=== PATIENT | male | born 1950 | race Hispanic/Latino ===

== ENCOUNTER 2018-04-09 15:15 | Inpatient (IN) | payer BC ==
[2018-04-09 15:24] VITALS: BMI 32.1
--- NOTE | 2018-04-09 15:41 | C.PDOC ---
History Of Present Illness 68 year old male with PMHx of HTN presents to the ED complaining of high blood pressure. Patient states he is currently on HCTZ and Cozaar and was recently prescribed Metropolol QD by PMD, but blood pressure remains unchanged. He has taken the Metoprolol for 3 days. He reports blood pressure was high when he got it checked at the pharmacy today which prompted him to come to the ER. He denies any headache, chest pain, shortness of breath, dizziness or blurred vision. Patient is currently asymptomatic but complains of indigestion for the past few days. Time Seen by Provider: 04/09/18 15:29 Chief Complaint (Nursing): High Blood Pressure History Per: Patient History/Exam Limitations: no limitations Onset/Duration Of Symptoms: Hrs Current Symptoms Are (Timing): Still Present Associated Symptoms: denies: Chest Pain, Blurred Vision, Headache Quality Of Symptoms: Asymptomatic Past Medical History Reviewed: Historical Data, Nursing Documentation, Vital Signs Vital Signs: Last Vital Signs Temp 98.8 F 04/09/18 15:24 Pulse 62 04/09/18 19:54 Resp 16 04/09/18 19:54 BP 185/110 H 04/09/18 19:54 Pulse Ox 97 04/09/18 19:54 - Medical History PMH: HTN Surgical History: Endoscopy Family History: States: No Known Family Hx - Social History Hx Alcohol Use: Yes Hx Substance Use: No - Immunization History Hx Tetanus Toxoid Vaccination: Yes Hx Influenza Vaccination: Yes Hx Pneumococcal Vaccination: Yes Review Of Systems Eyes: Negative for: Vision Change Cardiovascular: Negative for: Chest Pain Respiratory: Negative for: Shortness of Breath Neurological: Negative for: Headache, Dizziness Physical Exam - Physical Exam Appears: Non-toxic, No Acute Distress Skin: Normal Color, Warm, Dry Head: Atraumatic Eye(s): bilateral: Normal Inspection Nose: Normal Oral Mucosa: Moist Neck: Supple Chest: Symmetrical Cardiovascular: Rhythm Regular Respiratory: Normal Breath Sounds, No Rales, No Rhonchi, No Wheezing Extremity: Normal ROM Neurological/Psych: Oriented x3, Normal Speech Gait: Steady ED Course And Treatment - Laboratory Results Result Diagrams: 04/09/18 15:44 04/09/18 15:44 Lab Interpretation: No Acute Changes ECG: Interpreted By Me ECG Rhythm: Sinus Rhythm (with Q waves III, AVF) ECG Interpretation: No Acute Changes O2 Sat by Pulse Oximetry: 96 (RA) Pulse Ox Interpretation: Normal - CT Scan/US Head Other Rad Studies (CT/US): Read By Radiologist, Radiology Report Reviewed CT/US Interpretation: Accession No. : [id number]. Patient Name / ID : ALVERNE ZABALA / [id number]. Exam Date : 04/09/2018 16:42:06 ( Approved ). Study Comment : Sex / Age : M / [id number]. Creator : Willem Reyna MD. Dictator : Willem Reyna MD. Multimedia Assistant : Biophysics Teacher : Willem Reyna MD. Approver2 : Report Date : 04/09/2018 17:29:36. My Comment : . Date of service: 04/09/2018. PROCEDURE: CT HEAD WITHOUT CONTRAST. HISTORY : R/O Bleed. COMPARISON: None available. TECHNIQUE: Axial computed tomography images were obtained through the head/brain without intravenous contrast. Radiation dose: Total exam DLP = 876.4 mGy-cm. This CT exam was performed using one or more of the following dose reduction techniques: Automated exposure control, adjustment of the mA and/or kV according to patient size, and/or use of iterative reconstruction technique. FINDINGS: HEMORRHAGE: No intracranial hemorrhage. BRAIN: Good corticomedullary differentiation is seen. Proportional, diffuse expansion of the ventriculosulcal and cisternal spaces is appreciated with white matter lucency compatible with diffuse cerebral atrophy and chronic microangiopathy. No suspicious extra-axial fluid collection is identified and the midline brain anatomy appears grossly nonfocal as imaged. There is no mass effect throughout. VENTRICLES: Unremarkable. No hydrocephalus. CALVARIUM: Unremarkable. PARANASAL SINUSES: Unremarkable as visualized. No significant inflammatory changes. MASTOID AIR CELLS: Unremarkable as visualized. No inflammatory changes. OTHER FINDINGS: None. IMPRESSION: Limited age-appropriate age related neuro degenerative findings are identified as discussed above with no acute intracranial findings by standard CT criteria. Follow-up CT or MRI can be utilized as clinically warranted. Progress Note: Patient treated with Lopressor 50 mg po. Reevaluation Time: 19:16 Reassessment Condition: Unchanged (Patient continues to have elevated BP despite Lopressor. He is now c/o "indigestion". Repeat EKG shows sinus roland with ST segment slurring inferior and V5-6. Nitro drip and Protonix ordered.) - Physician Consult Information Time Consulting Physician Contacted: 19:18 Physician Contacted: Jim Andino Outcome Of Conversation: Patient to be admitted to his service. Medical Decision Making Medical Decision Making: Plan - CT head - EKG - Labs - UA Disposition - Disposition Disposition: HOSPITALIZED Disposition Time: 20:00 Condition: STABLE - POA Present On Arrival: None - Clinical Impression Clinical Impression: Chest pain, Uncontrolled hypertension - Scribe Statement The provider has reviewed the documentation as recorded by the Scribe Dee Dee Lopez All medical record entries made by the Scribe were at my direction and personally dictated by me. I have reviewed the chart and agree that the record accurately reflects my personal performance of the history, physical exam, medical decision making, and the department course for this patient. I have also personally directed, reviewed, and agree with the discharge instructions and disposition.
[2018-04-09 15:49] LABS: BASO % 0.5 % (0.0-2.0); EOS # 0.2 K/uL (0.0-0.7); EOS % 2.5 % (0.0-4.0); HEMOGLOBIN 14.3 g/dL (12.0-18.0); LYMPH # 1.8 K/uL (1.0-4.3); LYMPH % 23.6 % (20.0-40.0); MEAN CELL VOLUME 82.1 fL (80.0-94.0); MEAN CORPUSCULAR HEMOGLOBIN 28.6 pg (27.0-31.0); MEAN CORPUSCULAR HGB CONC 34.8 g/dL (33.0-37.0); MEAN PLATELET VOLUME 8.3 fL (7.2-11.7); MONO # 0.6 K/uL (0.0-0.8); MONO % 7.7 % (0.0-10.0); NEUT # 4.9 K/uL (1.8-7.0); NEUT % 65.7 % (50.0-75.0); NRBC % 0.3 % (0.0-2.0); RBC 4.98 Mil/uL (4.40-5.90); RED CELL DISTRIBUTION WIDTH 13.8 % (11.5-14.5); WHITE BLOOD COUNT 7.5 K/uL (4.8-10.8)
[2018-04-09 16:03] LABS: ALB/GLOB RATIO 1.7 (1.0-2.1); ALBUMIN 4.4 g/dL (3.5-5.0); ALT/SGPT 43 U/L (21-72); AST/SGOT 25 U/L (17-59); BLOOD UREA NITROGEN 16 mg/dL (9-20); CALCIUM 9.3 mg/dl (8.6-10.4); GFR AFRICAN-AMERICAN > 60; GFR NON-AFRICAN AMERICAN > 60
[2018-04-09 16:20] LABS: SQUAMOUS EPITHIAL < 1 /hpf (0-5); URINE BILIRUBIN NEGATIVE (NEGATIVE); URINE BLOOD NEGATIVE (NEGATIVE); URINE CLARITY Clear (Clear); URINE COLOR Yellow (YELLOW); URINE GLUCOSE (UA) NORMAL (Normal); URINE LEUKOCYTE ESTERASE NEG Leu/uL (Negative); URINE PROTEIN NEGATIVE (NEGATIVE); URINE UROBILINOGEN NORMAL mg/dL (0.2-1.0)
--- NOTE | 2018-04-09 17:31 | CT ---
Date of service: 04/09/2018 PROCEDURE: CT HEAD WITHOUT CONTRAST. HISTORY: R/O Bleed COMPARISON: None available. TECHNIQUE: Axial computed tomography images were obtained through the head/brain without intravenous contrast. Radiation dose: Total exam DLP = 876.4 mGy-cm. This CT exam was performed using one or more of the following dose reduction techniques: Automated exposure control, adjustment of the mA and/or kV according to patient size, and/or use of iterative reconstruction technique. FINDINGS: HEMORRHAGE: No intracranial hemorrhage. BRAIN: Good corticomedullary differentiation is seen. Proportional, diffuse expansion of the ventriculosulcal and cisternal spaces is appreciated with white matter lucency compatible with diffuse cerebral atrophy and chronic microangiopathy. No suspicious extra-axial fluid collection is identified and the midline brain anatomy appears grossly nonfocal as imaged. There is no mass effect throughout. VENTRICLES: Unremarkable. No hydrocephalus. CALVARIUM: Unremarkable. PARANASAL SINUSES: Unremarkable as visualized. No significant inflammatory changes. MASTOID AIR CELLS: Unremarkable as visualized. No inflammatory changes. OTHER FINDINGS: None. IMPRESSION: Limited age-appropriate age related neuro degenerative findings are identified as discussed above with no acute intracranial findings by standard CT criteria. Follow-up CT or MRI can be utilized as clinically warranted.
[2018-04-09] MEDS ORDERED: Nitroglycerin 50mg in D5W 50 MG/250 ML BOTTLE IV ONE ×2 (19:15→19:40)
[2018-04-09 22:09] LABS: BARBITURATES, UR NEGATIVE (NEGATIVE); BENZODIAZEPINES, UR NEGATIVE (NEGATIVE); OPIATES, UR NEGATIVE (NEGATIVE); PHENCYCLIDINE, UR NEGATIVE (NEGATIVE)
--- NOTE | 2018-04-09 22:27 | CP.PCM.CON ---
History of Present Illness - History of Present Illness History of Present Illness: 68 y/o male with pmx of HTN(uncontrolled) presents to [facility] with high blood presure measured at a pharmacy. Patient denies any chest pain, denies any dizziness, ayush any SOBm deneis any exerciase tolerance. Patient admits to a sedentary life style. Patient is a of an employee of [employer]. Patient was given lopressor and then started on nitro ggt at 5 mcg/min. Pmx: HTn P social hx: denies illicit drug use, denies any h/o smoking, work involves computers and travelling ICU consulted as patient was on 5 mcg of nitro ggt Review of Systems - Review of Systems Review of Systems: as per HPI Past Patient History - Past Social History Smoking Status: Never Smoked - CARDIAC Hx Hypertension: Yes - PSYCHIATRIC Hx Substance Use: No - SURGICAL HISTORY Hx Surgeries: Yes - ANESTHESIA Hx Anesthesia: Yes Hx Anesthesia Reactions: No Meds Allergies/Adverse Reactions: Allergies Allergy/AdvReac Type Severity Reaction Status Date / Time No Known Allergies Allergy Verified 04/09/18 15:21 - Medications Medications: Current Medications Nitroglycerin/Dextrose (Nitroglycerin 50 Mg/250 Ml D5w) 50 mg in 250 mls @ 1.5 mls/hr IV .Q24H ONE PRN Reason: 5 MCG/MIN Stop: 04/10/18 19:14 Last Admin: 04/09/18 19:45 Dose: 1.5 mls/hr Physical Exam - Head Exam Head Exam: ATRAUMATIC, NORMAL INSPECTION, NORMOCEPHALIC - Eye Exam Eye Exam: EOMI Pupil Exam: NORMAL ACCOMODATION - ENT Exam ENT Exam: Normal External Ear Exam - Respiratory Exam Respiratory Exam: Clear to Auscultation Bilateral, NORMAL BREATHING PATTERN - Cardiovascular Exam Cardiovascular Exam: Bradycardia, +S1, +S2 - GI/Abdominal Exam GI & Abdominal Exam: Normal Bowel Sounds, Soft. absent: Distended, Guarding, Rebound, Rigid - Extremities Exam Extremities exam: Positive for: normal inspection Results - Vital Signs Recent Vital Signs: Last Vital Signs Temp 98.8 F 04/09/18 15:24 Pulse 55 L 04/09/18 22:12 Resp 16 04/09/18 22:12 BP 160/104 H 04/09/18 22:12 Pulse Ox 98 04/09/18 22:12 - Labs Result Diagrams: 04/09/18 15:44 04/09/18 15:44 Labs: Laboratory Results - last 24 hr 04/09/18 04/09/18 04/09/18 15:44 15:44 16:14 WBC 7.5 RBC 4.98 Hgb 14.3 Hct 40.9 MCV 82.1 MCH 28.6 MCHC 34.8 RDW 13.8 Plt Count 207 MPV 8.3 Neut % (Auto) 65.7 Lymph % (Auto) 23.6 [place] % (Auto) 7.7 Eos % (Auto) 2.5 Baso % (Auto) 0.5 Neut # (Auto) 4.9 Lymph # (Auto) 1.8 [place] # (Auto) 0.6 Eos # (Auto) 0.2 Baso # (Auto) 0.0 Sodium 140 Potassium 3.6 Chloride 103 Carbon Dioxide 25 Anion Gap 15 BUN 16 Creatinine 1.1 Est GFR ( Amer) > 60 Est GFR (Non-Af Amer) > 60 Random Glucose 132 H Calcium 9.3 Total Bilirubin 0.7 AST 25 ALT 43 Alkaline Phosphatase 87 Troponin I < 0.0120 Total Protein 6.9 Albumin 4.4 Globulin 2.5 Albumin/Globulin Ratio 1.7 Urine Color Yellow Urine Clarity Clear Urine pH 6.0 Ur Specific [place] 1.013 Urine Protein Negative Urine Glucose (UA) Normal Urine Ketones Negative Urine Blood Negative Urine Nitrate Negative Urine Bilirubin Negative Urine Urobilinogen Normal Ur Leukocyte Esterase Neg Urine WBC (Auto) < 1 Urine RBC (Auto) < 1 Ur Squamous Epith Cells < 1 Urine Opiates Screen Urine Methadone Screen Ur Barbiturates Screen Ur Phencyclidine Scrn Ur Amphetamines Screen U Benzodiazepines Scrn U Oth Cocaine Metabols U Cannabinoids Screen 04/09/18 21:46 WBC RBC Hgb Hct MCV MCH MCHC RDW Plt Count MPV Neut % (Auto) Lymph % (Auto) [place] % (Auto) Eos % (Auto) Baso % (Auto) Neut # (Auto) Lymph # (Auto) [place] # (Auto) Eos # (Auto) Baso # (Auto) Sodium Potassium Chloride Carbon Dioxide Anion Gap BUN Creatinine Est GFR ( Amer) Est GFR (Non-Af Amer) Random Glucose Calcium Total Bilirubin AST ALT Alkaline Phosphatase Troponin I Total Protein Albumin Globulin Albumin/Globulin Ratio Urine Color Urine Clarity Urine pH Ur Specific [place] Urine Protein Urine Glucose (UA) Urine Ketones Urine Blood Urine Nitrate Urine Bilirubin Urine Urobilinogen Ur Leukocyte Esterase Urine WBC (Auto) Urine RBC (Auto) Ur Squamous Epith Cells Urine Opiates Screen Negative Urine Methadone Screen Negative Ur Barbiturates Screen Negative Ur Phencyclidine Scrn Negative Ur Amphetamines Screen Negative U Benzodiazepines Scrn Negative U Oth Cocaine Metabols Negative U Cannabinoids Screen Negative Assessment & Plan - Assessment and Plan (Free Text) Assessment: HTN: uncontrolled: start with oral lopressor 25 mg q12 hrs and hydralazine 25 mg q8hrs, cehck echo, esr/HS-crp, cholesterol panel -r/o ACS: cehck trop q8hrs x3, (pre-test probability low), ekg changes c/w cardiac mural pressure gradient -HTN: patient will benefit from a combination of lopressor, acei and hydralazine -nutrition consult for heart healthy and no salt diet -continue dvt/pud ppx -cardiology eval -age appropriate screening -Patient is hemodyanmically stable and does not require IV nitroglycerin with current oral antihypertensive d/w ER physician -Risks benefits and alternatives explained to patient. - Date & Time Date: 04/09/18 Time: 22:30
[2018-04-10 06:14] LABS: BASO % 0.3 % (0.0-2.0); EOS # 0.2 K/uL (0.0-0.7); EOS % 2.6 % (0.0-4.0); HEMOGLOBIN 14.8 g/dL (12.0-18.0); LYMPH # 1.9 K/uL (1.0-4.3); LYMPH % 25.1 % (20.0-40.0); MEAN CELL VOLUME 83.1 fL (80.0-94.0); MEAN CORPUSCULAR HEMOGLOBIN 28.8 pg (27.0-31.0); MEAN CORPUSCULAR HGB CONC 34.7 g/dL (33.0-37.0); MEAN PLATELET VOLUME 8.7 fL (7.2-11.7); MONO # 0.7 K/uL (0.0-0.8); MONO % 8.4 % (0.0-10.0); NEUT # 4.9 K/uL (1.8-7.0); NEUT % 63.6 % (50.0-75.0); RBC 5.12 Mil/uL (4.40-5.90); RED CELL DISTRIBUTION WIDTH 13.9 % (11.5-14.5); WHITE BLOOD COUNT 7.7 K/uL (4.8-10.8)
[2018-04-10 06:34] LABS: ALB/GLOB RATIO 1.6 (1.0-2.1); ALBUMIN 4.3 g/dL (3.5-5.0); ALT/SGPT 43 U/L (21-72); AST/SGOT 20 U/L (17-59); BLOOD UREA NITROGEN 14 mg/dL (9-20); CALCIUM 9.1 mg/dl (8.6-10.4); GFR AFRICAN-AMERICAN > 60; GFR NON-AFRICAN AMERICAN > 60
[2018-04-10] MEDS: Enoxaparin 40 mg Syringe SC SCH (11:53)
[2018-04-10] MEDS: Metoprolol Succinate 50 mg XL Tab PO SCH (12:13)
--- NOTE | 2018-04-11 07:12 | CP.PCM.PN ---
Subjective - Date & Time of Evaluation Date of Evaluation: 04/11/18 Time of Evaluation: 07:11 - Subjective Subjective: PGY2 Medicine Note for Dr. Andino Patient seen and examined this morning at bedside. No acute events overnight. Patient states he has a long standing history of hypertension which has been controlled until recently. He was taking amlodipine but was informed by his dentist that the medication was causing a problem with his gums. He stopped the medication and was switched to to Losartan and Metoprolol. He was initially placed on an nitro drip and brought to the ICU. Nitro drip was discontinued yesterday and patient was transferred out of ICU to [facility]. He has no other past medical problems other than hypertension and GERD. This morning he is complaining of mild heartburn. He has no other complaints at this time. Denies fevers, chills, nausea, vomiting, diarrhea, constipation, chest pain, shortness of breath, palpitations, abdominal pain, numbness, tingling or vision changes. Objective - Vital Signs/Intake and Output Vital Signs (last 24 hours): Temp Pulse Resp BP Pulse Ox 98.2 F 55 L 13 162/94 H 97 04/11/18 04:00 04/11/18 06:02 04/11/18 06:02 04/11/18 06:02 04/11/18 06:02 Intake and Output: 04/11/18 04/11/18 06:59 18:59 Intake Total 240 Balance 240 - Medications Medications: Current Medications Enoxaparin Sodium (Lovenox) 40 mg SC DAILY [facility] Last Admin: 04/10/18 11:53 Dose: 40 mg Hydralazine HCl (Apresoline) 25 mg PO Q8 [facility] Last Admin: 04/11/18 05:21 Dose: 25 mg Hydrochlorothiazide (Hydrodiuril) 25 mg PO DAILY [facility] Losartan Potassium (Cozaar) 100 mg PO DAILY [facility] Last Admin: 04/10/18 11:53 Dose: 100 mg Metoprolol Succinate (Toprol Xl) 50 mg PO DAILY [facility] Last Admin: 04/10/18 12:13 Dose: 50 mg - Labs Labs: 04/10/18 06:07 04/10/18 06:07 - Constitutional Appears: Non-toxic, No Acute Distress - Head Exam Head Exam: ATRAUMATIC, NORMOCEPHALIC - Eye Exam Eye Exam: EOMI, Normal appearance - ENT Exam ENT Exam: Mucous Membranes Moist - Respiratory Exam Respiratory Exam: Clear to Ausculation Bilateral, NORMAL BREATHING PATTERN. absent: Accessory Muscle Use, Rales, Rhonchi, Wheezes, Respiratory Distress - Cardiovascular Exam Cardiovascular Exam: REGULAR RHYTHM, +S1, +S2 - GI/Abdominal Exam GI & Abdominal Exam: Soft. absent: Distended, Firm, Guarding, Rigid, Tenderness - Extremities Exam Extremities Exam: absent: Calf Tenderness, Pedal Edema - Neurological Exam Neurological Exam: Alert, Awake, CN II-XII Intact, Oriented x3 - Psychiatric Exam Psychiatric exam: Normal Affect, Normal Mood - Skin Skin Exam: Dry, Warm Assessment and Plan - Assessment and Plan (Free Text) Plan: Hypertensive Urgency Transferred out of ICU to telemetry Discontinued nitro drip Trop negative x3 UDS - negative CRP - 3.85 TSH - 3.57 Medications: * Hydralazine 50mg PO q8h * HCTZ 25mg PO dialy * Losartan 100mg PO daily * Metoprolol Succinate 50mg PO daily - hold for HR <50bpm * Hydralazine 10mg IVP q6h prn for SBP>160 Prophylactic Care Lovenox 40mg SC daily Case discussed and all medical management per Dr. Andino
[2018-04-11] MEDS: Pantoprazole 40 mg EC Tab PO SCH (08:59)
[2018-04-11] MEDS: Metoprolol Succinate 50 mg XL Tab PO SCH (08:59)
[2018-04-11] MEDS: Enoxaparin 40 mg Syringe SC SCH (09:00)
--- NOTE | 2018-04-11 11:47 | HP ---
HISTORY OF PRESENT ILLNESS: A 68-year-old male with history of hypertension, poorly controlled, came to the hospital complaining of high blood pressure. The patient uses losartan, metoprolol, hydrochlorothiazide. PHYSICAL EXAMINATION: GENERAL: The patient is awake, alert, oriented. VITAL SIGNS: Temperature 96, pulse 90. HEENT: Within normal limits. NECK: Supple. CHEST: Symmetrical. HEART: Regular. ABDOMEN: Soft. EXTREMITIES: No edema. ASSESSMENT AND PLAN: The patient at this time with history of hypertension. blood pressure control. Adjust blood pressure medicine. Diet modification. Exercise. Jim Andino MD
[2018-04-12 09:05] VITALS: TEMP 98.1
--- NOTE | 2018-04-12 09:12 | CP.PCM.PN ---
Subjective - Date & Time of Evaluation Date of Evaluation: 04/12/18 Time of Evaluation: 08:48 - Subjective Subjective: PGY2 Medicine Note or Dr. Andino Patient seen and examined this morning at bedside. No acute events overnight. Patient is feeling well without any complaints. His blood pressure has been fluctuating throughout the night but is greatly improved. He is very eager to go home and wants to be discharged this morning. He is adamant that he will follow up with his PMD for further blood pressure management. Denies fevers, chills, nausea, vomiting, diarrhea, constipation, chest pain, shortness of breath, palpitations, abdominal pain, headaches, vision changes, numbness or tingling. Objective - Vital Signs/Intake and Output Vital Signs (last 24 hours): Temp Pulse Resp BP Pulse Ox 98.2 F 66 22 152/96 H 96 04/12/18 04:00 04/12/18 06:06 04/12/18 06:06 04/12/18 06:06 04/12/18 06:06 Intake and Output: 04/12/18 04/12/18 06:59 18:59 Intake Total 360 Output Total 1000 Balance -640 - Medications Medications: Current Medications Enoxaparin Sodium (Lovenox) 40 mg SC DAILY [facility] Last Admin: 04/11/18 09:00 Dose: 40 mg Hydralazine HCl (Apresoline) 10 mg IVP Q6H PRN PRN Reason: SBP>160 Last Admin: 04/11/18 22:28 Dose: 10 mg Hydralazine HCl (Apresoline) 50 mg PO Q8 [facility] Last Admin: 04/12/18 06:05 Dose: 50 mg Hydrochlorothiazide (Hydrodiuril) 25 mg PO DAILY [facility] Last Admin: 04/11/18 08:59 Dose: 25 mg Losartan Potassium (Cozaar) 100 mg PO DAILY [facility] Last Admin: 04/11/18 08:59 Dose: 100 mg Metoprolol Succinate (Toprol Xl) 50 mg PO DAILY [facility] Last Admin: 04/11/18 08:59 Dose: 50 mg Pantoprazole Sodium (Protonix Ec Tab) 40 mg PO DAILY [facility] Last Admin: 04/11/18 08:59 Dose: 40 mg - Labs Labs: 04/10/18 06:07 04/10/18 06:07 - Constitutional Appears: Non-toxic, No Acute Distress - Head Exam Head Exam: ATRAUMATIC, NORMOCEPHALIC - Eye Exam Eye Exam: Normal appearance - ENT Exam ENT Exam: Mucous Membranes Moist - Neck Exam Neck Exam: absent: Lymphadenopathy - Respiratory Exam Respiratory Exam: Clear to Ausculation Bilateral, Wheezes, NORMAL BREATHING PATTERN. absent: Accessory Muscle Use, Rales, Rhonchi, Respiratory Distress - Cardiovascular Exam Cardiovascular Exam: REGULAR RHYTHM, +S1, +S2 - GI/Abdominal Exam GI & Abdominal Exam: Distended, Firm, Soft. absent: Guarding, Rigid, Tenderness - Extremities Exam Extremities Exam: absent: Calf Tenderness, Pedal Edema - Neurological Exam Neurological Exam: Alert, Awake, Oriented x3 - Psychiatric Exam Psychiatric exam: Normal Affect, Normal Mood - Skin Skin Exam: Dry, Warm Assessment and Plan - Assessment and Plan (Free Text) Plan: Hypertension Transferred out of ICU to telemetry on 04/11 BP fluctuating 140s - 160s Trop negative x3 UDS - negative CRP - 3.85 TSH - 3.57 Medications: * Hydralazine 50mg PO q8h * HCTZ 25mg PO dialy * Losartan 100mg PO daily * Metoprolol Succinate 50mg PO daily - hold for HR <50bpm * Hydralazine 10mg IVP q6h prn for SBP>160 Prophylactic Care Lovenox 40mg SC daily DISPO: Patient discharged on 04/12 with the following instructions Patient is to be discharged home per Dr. Andino. Patient is to follow up with his primary care physician within 1 week of being discharged. Patient is to take ONLY the medications as followed: - Metoprolol Succinate XL 50mg by mouth once daily - Losartan 100mg by mouth once daily - Hydrochlorothiazide 25mg by mouth once daily - Hydralazine 50mg by mouth every 8 hours daily Patient given a prescription for a sleep study to evaluate snoring/apnea. If patient experiences any new or concerning symptoms, please go directly to the nearest emergency department. Case discussed and all medical management per Dr. Andino
[2018-04-12] MEDS: Pantoprazole 40 mg EC Tab PO SCH (09:19)
[2018-04-12] MEDS: Metoprolol Succinate 50 mg XL Tab PO SCH (09:19)
[2018-04-12] MEDS: Enoxaparin 40 mg Syringe SC SCH (09:26)
[2018-04-12 10:27] VITALS: BP 175/105; PULSE 86; RESP 17; O2SAT 97
--- NOTE | 2018-04-12 14:59 | CARD ---
APPROVED REPORT Date of service: 04/11/2018 EXAM: Two-dimensional and M-mode echocardiogram with Doppler and color Doppler. Other Information Quality : GoodRhythm : INDICATION LV Function:Systolic Chest Pain RISK FACTORS Hypertension 2D DIMENSIONS IVSd1.5 (0.7-1.1cm)LVDd4.2 (3.9-5.9cm) PWd1.3 (0.7-1.1cm)LVDs2.1 (2.5-4.0cm) FS (%) 50.7 %LVEF (%)70.0 (>50%) M-Mode DIMENSIONS Left Atrium (MM)4.10 (2.5-4.0cm)IVSd1.21 (0.7-1.1cm) Aortic Root3.52 (2.2-3.7cm)LVDd5.01 (4.0-5.6cm) Aortic Cusp Exc.2.18 (1.5-2.0cm)PWd0.99 (0.7-1.1cm) FS (%) 33 %LVDs3.34 (2.0-3.8cm) LVEF (%)62 (>50%) Mitral Valve MV E Lvthdxan33.0cm/sMV A Thhnqkwe43.2cm/sE/A ratio1.1 TDI E/Lateral E'0.0E/Medial E'0.0 Tricuspid Valve TR Peak [id number]/sTR Peak [id number] <Conclusion> Left ventricle: thickness: normal; size: normal; overall ejection fraction: 65%: diastolic filling pressures: elevated Mitral valve: annulus: normal: leaflets: normal: excursion: normal; no significant trans-mitral gradient: No significant incompetence: left atrium: normal Aortic valve: leaflets:mild calcific thickening; excursion: normal; no significant trans-aortic gradient:mild incompetence: aortic root: dilated Right sided Structures: Pulmonary valve: normal; no significant incompetence; Tricuspid valve: normal; no significant incompetence: Intra-cardiac hemodynamics: pulmonary systolic pressures:32mmHg; central venous pressures: normal No pericardial effusion
== END 2018-04-12 10:45 | disposition home or self-care (01) | DRG 305 ==
LOC: C.ER 15:15 → C.9E 20:00 → C.9I 22:19
PROVIDERS: ADMIT Internal Medicine Pulmonary Disease; ATTEND Internal Medicine Pulmonary Disease
DX: I10 Essential (primary) hypertension (principal); R07.89 Other chest pain; K21.9 Gastro-esophageal reflux disease without esophagitis